=== PATIENT | female | born 1980 ===

== ENCOUNTER 2017-06-24 07:41 | Day surgery (SDC) | payer OTHER ==
[2017-06-24 08:15] VITALS: BMI 20.3
[2017-06-24] MEDS ORDERED: Lactated Ringer's 1,000 ML IV ONE (09:50)
--- NOTE | 2017-06-24 09:52 | CP.SDSHP ---
Same Day Surgery H & P - History Proposed Procedure: endoscopy Pre-Op Diagnosis: abdom pain, epigastric - Previous Medical/Surgical History Pulmonary: Asthma - Allergies Allergies: Allergies No Known Allergies Allergy (Verified 06/24/17 08:15) - Physical Exam Vital Signs: Vital Signs 06/24/17 08:33 Temperature 97.5 F L Pulse Rate 66 Respiratory 19 Rate Blood Pressure 97/65 L O2 Sat by Pulse 100 Oximetry Mental Status: Alert & Oriented x3 Neuro: WNL Heart: WNL Lungs: WNL GI: WNL - {Optional Preform as Required} Abdomen: WNL - Impression Impression: epig abdom pain Pt. Evaluated Today:Candidate for Anesthesia & Procedure: Yes - Date & Time Date: 06/24/17 Time: 09:52 Short Stay Discharge - Short Stay Discharge Admitting Diagnosis/Reason for Visit: EPIGASTRIC PAIN Disposition: HOME/ ROUTINE
[2017-06-24] MEDS ORDERED: Propofol 10 mg/ml Inj (20 ML) ONE (09:55)
[2017-06-24 10:37] VITALS: TEMP 97
[2017-06-24 10:38] VITALS: O2SAT 100
[2017-06-24 11:03] VITALS: PULSE 70
[2017-06-24 11:30] VITALS: BP 102/66; RESP 13
== END 2017-06-24 11:15 | disposition home or self-care (01) ==
LOC: C.ENDO 07:41
PROVIDERS: ATTEND Internal Medicine Gastroenterology
DX: K26.9 Duodenal ulcer, unspecified as acute or chronic, without hemorrhage or perforation (principal); K29.50 Unspecified chronic gastritis without bleeding
CPT/HCPCS: 43239; 84703; 88305; J2001; J2704; J7120